=== PATIENT | male | born 1955 | race Hispanic/Latino ===

== ENCOUNTER 2021-04-25 10:42 | Outpatient (AMB) | payer MEDICARE, SELFPAY ==
[2021-04-25 11:18] VITALS: BP 166/71; PULSE 74; TEMP 36.5
--- NOTE | 2021-04-25 11:18 | U.OPVIS1 ---
Intake Vital Signs 04/25/21 11:18 Weight 92.136 kg BP 166/71 H Blood Pressure Location Left Upper Arm Position Sitting Pulse 74 Pulse Source Monitor Temp 97.7 F Temp Source Temporal Artery Scan Intake Visit Reasons: Uro Uroflow and Bladder Scan Him Specialist Required: Yes Is patient in pain?: No Allergy Allergies No Known Allergies Allergy (Verified 04/25/21 11:19) Home Meds Medication Reconciliation carvedilol 6.25 mg tablet 6.25 mg PO BID 03/26/21 [History Confirmed 04/25/21] hydrochlorothiazide 25 mg tablet 25 mg PO QDAY 03/26/21 [History Confirmed 04/25/21] lisinopril 20 mg tablet 20 mg PO QDAY 03/26/21 [History Confirmed 04/25/21] nifedipine 90 mg tablet,extended release 90 mg PO QDAY 03/26/21 [History Confirmed 04/25/21] Office Procedures Uro Bladder Scan and Uro Flow My Supervising Practitioner for this visit is:: Lucrecia Carty Bladder Scan and Uro Flow Completed?: Yes Diagnosis: BPH WITH LUTS N40.1 SLOW STREAM R39.12 Uro Level of Care Nursing/Assessment/Reassessment Patient Status: Established Patient Nursing Assessment/Reassessment: Update COUNT INCLUDES THE [facility] data in EMR, Vital Signs and Medication Reconciliation Coordination of Care: Comp Pt/Fam Ed for care Special Needs: Language special needs Established Patient Point Assignment: 55 Procedure IM Injection: No Transrectal Ultrasound: No
== END 2021-04-25 11:26 | disposition home or self-care (01) ==
LOC: HODURO 10:42
PROVIDERS: PCP Internal Medicine; Visit Provider Urology